=== PATIENT | male | born 1945 | race Caucasian/White ===

== ENCOUNTER 2016-04-03 10:26 | Inpatient (IN) | payer MEDICARE, BC ==
[2016-04-03] VITALS (10 sets, daily range): BP systolic 106–136; BP diastolic 67–78; PULSE 71–92; RESP 16–20; TEMP 98–98.1; O2SAT 95–98
[~2016-04-03] VITALS: Ht 180.3 cm; Wt 100.0 kg
[~2016-04-03 10:26] MED LIST: ADVA250A INH; ASPI81TA82 PO; GLUCTAB PO; LISI2.5T3 PO; METO25 PO; MONT10 PO; NITR.3 SL; PRAS10TA PO; SIMV20TA PO
[2016-04-03] MEDS ORDERED: PRAS10TA PO (10:58)
[2016-04-03] MEDS ORDERED: METF500T PO (10:58)
[2016-04-03] MEDS ORDERED: ADVA250A INH (10:58)
[2016-04-03] MEDS ORDERED: SIMV20TA PO (10:58)
[2016-04-03] MEDS ORDERED: ISOS60TA PO (10:58)
[2016-04-03] MEDS ORDERED: LISI2.5T3 PO (10:58)
[2016-04-03] MEDS ORDERED: METO25TA3 PO (10:58)
[2016-04-03] MEDS ORDERED: MONT10TA4 PO (10:58)
[2016-04-03] MEDS ORDERED: ASPI81TA81 PO (10:58)
[2016-04-03] MEDS ORDERED: NITR0.4S SL (10:58)
[2016-04-03 11:07] LABS: AUTOMATED NEUTROPHIL # 3.8 TH/MM3 (1.8-7.7); BASOPHIL # 0.1 TH/MM3 (0-0.2); BASOPHIL % 0.8 % (0.0-2.0); EOSINOPHIL # 0.1 TH/MM3 (0-0.4); EOSINOPHIL % 2.3 % (0.0-4.0); HEMATOCRIT 42.8 % (39.0-51.0); HEMO FLAGS DIFF FINAL; LYMPH % 28.3 % (9.0-44.0); LYMPHOCYTE # 1.8 TH/MM3 (1.0-4.8); MEAN CELL VOLUME 86.8 FL (80.0-100.0); MEAN CORPUSCULAR HEMOGLOBIN 29.7 PG (27.0-34.0); MEAN CORPUSCULAR HGB CONC 34.2 % (32.0-36.0); MONO % 8.5 % (0.0-8.0); NEUT % 60.1 % (16.0-70.0); PLATELET COUNT 209 TH/MM3 (150-450); RED BLOOD COUNT 4.93 MIL/MM3 (4.50-5.90); RED CELL DISTRIBUTION WIDTH 13.5 % (11.6-17.2); WHITE BLOOD COUNT 6.3 TH/MM3 (4.0-11.0)
[2016-04-03 11:18] LABS: APTT (PATIENT) 28.2 SEC (24.3-30.1); PROTHROMBIN TIME - PATIENT 11.1 SEC (9.8-11.6)
[2016-04-03 11:38] LABS: ANION GAP 10 MEQ/L (5-15); BICARBONATE 25.6 MEQ/L (21.0-32.0); BLOOD UREA NITROGEN 17 MG/DL (7-18); CHLORIDE 104 MEQ/L (98-107); GLOMERULAR FILTRATION RATE 62 ML/MIN (>89); POTASSIUM 4.2 MEQ/L (3.5-5.1); SODIUM (NA) 140 MEQ/L (136-145)
[2016-04-03 11:42] LABS: CREATINE KINASE 151 U/L (39-308)
--- NOTE | 2016-04-03 11:42 | RADRPT ---
EXAM DATE/TIME: 04/03/2016 11:44 [place] COMPARISON: No previous studies available for comparison. INDICATIONS : Shortness of breath, pain and tightness in chest. MEDICAL HISTORY : None. SURGICAL HISTORY : None. ENCOUNTER: Initial ACUITY: 1 week PAIN SCORE: 4/10 LOCATION: Bilateral chest FINDINGS: The lungs are under aerated. Minimal bibasilar clinical changes are noted. The portion of the bony s keleton visualized is unremarkable. PA and lateral views of the chest demonstrate the lungs to be symmetrically aerated without evidence of mass, infiltrate or effusion. The cardiomediastinal contours are unremarkable. Osseous structure s are intact. CONCLUSION: Underated, otherwise negative. Denny Guaman MD FACR on April 03, 2016 at 11:40 Board Certified Radiologist. This report was verified electronically.
[2016-04-03 11:55] LABS: CKMB 3.6 NG/ML (0.5-3.6)
[2016-04-03 12:18] LABS: INDIRECT BILIRUBIN 0.7 MG/DL (0.0-0.8); TOTAL BILIRUBIN ADULT 0.9 MG/DL (0.2-1.0)
--- NOTE | 2016-04-03 13:21 | PD ---
HPI Chief Complaint: Chest Pain Time Seen by Provider: 10:56 Travel History International Travel<30 days: No Contact w/Intl Traveler<30days: No Traveled to known affect area: No History of Present Illness HPI This is a 70-year-old man who presents to the emergency department complaining of intermittent chest discomfort ongoing for the past week, worse with ambulation. He describes a tight squeezing discomfort associated with shortness of breath and diaphoresis. He states he feels a little bit similar to when he had chest pain in the past but not completely similar. History Past Medical History Narrative Medical Hyperlipidemia COPD CAD history of stents Social History Alcohol Use: Yes (occ) Tobacco Use: No Allergies-Medications (Allergen,Severity, Reaction): Coded Allergies: No Known Allergies (Unverified , 04/03/16) Reported Meds & Prescriptions Reported Meds & Active Scripts Active Reported Simvastatin 20 Mg Tab 20 Mg PO HS Isosorbide Mononitrate ER (Isosorbide Mononitrate) 60 Mg Tab 60 Mg PO HS Aspir-81 (Aspirin) 81 Mg Tabdr 162 Mg PO DAILY Nitrostat SL (Nitroglycerin) 0.4 Mg Subl 0.4 Mg SL DIRECTED PRN 1 tablet under the tongue as needed for chest pain. Repeat every 5 minutes for a total of 3 DOSES or call 911 if NO relief. Metoprolol Tartrate 25 Mg Tab 12.5 Mg PO HS Lisinopril 2.5 Mg Tab 2.5 Mg PO DAILY Effient (Prasugrel) 10 Mg Tab 10 Mg PO DAILY Montelukast (Montelukast Sodium) 10 Mg Tab 10 Mg PO HS Metformin (Metformin HCl) 500 Mg Tab 500 Mg PO BIDPC With meals Advair Diskus Inh (Fluticasone-Salmeterol Inh) 250-50 Mcg/Blist Aer 1 Puff INH BID Rinse mouth after use. Review of Systems Except as stated in HPI: all other systems reviewed are Neg Physical Exam Narrative GENERAL: Well-appearing 70 year-old woman, no acute distress. SKIN: Warm and dry. HEAD: Atraumatic. Normocephalic. CARDIOVASCULAR: Regular rate and rhythm. No murmur appreciated. RESPIRATORY: No accessory muscle use. Clear to auscultation. Breath sounds equal bilaterally. GASTROINTESTINAL: Abdomen soft, non-tender, nondistended. Hepatic and splenic margins not palpable. MUSCULOSKELETAL: No obvious deformities. No edema. NEUROLOGICAL: Awake and alert. No obvious cranial nerve deficits. Motor grossly within normal limits. Normal speech. PSYCHIATRIC: Appropriate mood and affect; insight and judgment normal. Data Data Last Documented VS Vital Signs Date Time Temp Pulse Resp B/P Pulse Ox O2 Delivery O2 Flow Rate FiO2 04/03/16 10:31 98.1 78 16 136/67 95 Orders Electrocardiogram (04/03/16 10:31) Complete Blood Count With Diff (04/03/16 10:31) Basic Metabolic Panel (Bmp) (04/03/16 10:31) Ckmb (Isoenzyme) Profile (04/03/16 10:31) Troponin I (04/03/16 10:31) Prothrombin Time / Inr (Pt) (04/03/16 10:33) Act Partial Throm Time (Ptt) (04/03/16 10:33) Hepatic Functional Panel (04/03/16 11:26) Chest, Pa & Lat (04/03/16 ) CKMB (04/03/16 10:45) CKMB% (04/03/16 10:45) Admit Order (Ed Use Only) (04/03/16 ) Labs Laboratory Tests Test 04/03/16 10:45 White Blood Count 6.3 TH/MM3 Red Blood Count 4.93 MIL/MM3 Hemoglobin 14.6 GM/DL Hematocrit 42.8 % Mean Corpuscular Volume 86.8 FL Mean Corpuscular Hemoglobin 29.7 PG Mean Corpuscular Hemoglobin 34.2 % Concent Red Cell Distribution Width 13.5 % Platelet Count 209 TH/MM3 Mean Platelet Volume 8.1 FL Neutrophils (%) (Auto) 60.1 % Lymphocytes (%) (Auto) 28.3 % Monocytes (%) (Auto) 8.5 % Eosinophils (%) (Auto) 2.3 % Basophils (%) (Auto) 0.8 % Neutrophils # (Auto) 3.8 TH/MM3 Lymphocytes # (Auto) 1.8 TH/MM3 Monocytes # (Auto) 0.5 TH/MM3 Eosinophils # (Auto) 0.1 TH/MM3 Basophils # (Auto) 0.1 TH/MM3 CBC Comment DIFF FINAL Differential Comment Prothrombin Time 11.1 SEC Prothromb Time International 1.0 RATIO Ratio Activated Partial 28.2 SEC Thromboplast Time Sodium Level 140 MEQ/L Potassium Level 4.2 MEQ/L Chloride Level 104 MEQ/L Carbon Dioxide Level 25.6 MEQ/L Anion Gap 10 MEQ/L Blood Urea Nitrogen 17 MG/DL Creatinine 1.17 MG/DL Estimat Glomerular Filtration 62 ML/MIN Rate Random Glucose 114 MG/DL Calcium Level 9.3 MG/DL Total Bilirubin 0.9 MG/DL Direct Bilirubin 0.2 MG/DL Indirect Bilirubin 0.7 MG/DL Aspartate Amino Transf 12 U/L (AST/SGOT) Alanine Aminotransferase 28 U/L (ALT/SGPT) Alkaline Phosphatase 80 U/L Total Creatine Kinase 151 U/L Creatine Kinase MB 3.6 NG/ML Troponin I LESS THAN 0.02 NG/ML Total Protein 7.7 GM/DL Albumin 4.5 GM/DL [facility] Medical Decision Making Medical Screen Exam Complete: Yes Emergency Medical Condition: Yes Interpretation(s) LABS: CBC is unremarkable. CMP is unremarkable. Troponin negative. Chest x-ray: Negative EKG: Nondiagnostic. Differential Diagnosis ACS, ME, dissection, PE, indigestion, pancreatitis, other Narrative Course This is a 70-year-old male presents emergency department with pressure-like chest discomfort with exertion, concerning for an acute coronary syndrome. I spoke with Dr. aGrzon, his podiatrist assistant. Recommend admission a heart catheterization. We will try to contact whoever is international flight attendant for [facility]. Patient will be admitted. HemaPrompt Point of Care Fecal Specimen Occult Blood: Negative Diagnosis Primary Impression: ACS (acute coronary syndrome) Admitting Information Admitting Physician Requests: Admit Santos Ferrari MD Apr 03, 2016 13:21
--- NOTE | 2016-04-03 14:08 | HHI.HP ---
[facility] Service Family Medicine Primary Care Physician Kyaw Cortez M.D. Admission Diagnosis ACS Diagnoses: International Travel<30 Days: No Contact w/Intl Traveler<30days: No Known Affected Area: No History of Present Illness Pt is a 70 year old male with past medical history significant for CAD presenting due to chest pain. Patient recently started exercising regularly by walking. He began to experience progressively worsening chest pain that would increase in duration the more he walked. He would experience right sided chest discomfort which would radiate to the left side of his chest. Patient called his senior scrum master, Dr. Garzon, earlier today and informed him of his symptoms and he was instructed to report to the emergency department. Pain is exacerbated by activity. After resting for several minutes pain would completely resolve. Pain is described as a pressure, "like someone is grabbing him from the inside", 3/10 in intensity, currently resolved. He denies any associated nausea, vomiting, shortness of breath. Pt denies history of IN, but he has had stents placed. This pain is different to the pain he had prior to stent placement. (Deny Palafox MD R2) Review of Systems Constitutional: COMPLAINS OF: Fatigue, DENIES: Chills Eyes: DENIES: Blurred vision Ears, nose, mouth, throat: COMPLAINS OF: Hearing loss Respiratory: DENIES: Shortness of breath Cardiovascular: COMPLAINS OF: Chest pain, DENIES: Palpitations, Syncope Gastrointestinal: DENIES: Abdominal pain, Black stools, Bloody stools, Constipation, Diarrhea, Nausea, Vomiting Musculoskeletal: COMPLAINS OF: Stiffness, Back pain Integumentary: DENIES: Rash Neurologic: DENIES: Localized weakness Psychiatric: DENIES: Confusion (Deny Palafox MD R2) Past Family Social History Past Medical History Hyperlipidemia CAD, history of stent placement DM COPD Past Surgical History Cardiac stent placement x3 on two separate occasions 2009, Internal hemmheroid surgery Reported Medications Reported Meds & Active Scripts Active Reported Simvastatin 20 Mg Tab 20 Mg PO HS Isosorbide Mononitrate ER (Isosorbide Mononitrate) 60 Mg Tab 60 Mg PO HS Aspir-81 (Aspirin) 81 Mg Tabdr 162 Mg PO DAILY Nitrostat SL (Nitroglycerin) 0.4 Mg Subl 0.4 Mg SL DIRECTED PRN 1 tablet under the tongue as needed for chest pain. Repeat every 5 minutes for a total of 3 DOSES or call 911 if NO relief. Metoprolol Tartrate 25 Mg Tab 12.5 Mg PO HS Lisinopril 2.5 Mg Tab 2.5 Mg PO DAILY Effient (Prasugrel) 10 Mg Tab 10 Mg PO DAILY Montelukast (Montelukast Sodium) 10 Mg Tab 10 Mg PO HS Metformin (Metformin HCl) 500 Mg Tab 500 Mg PO BIDPC With meals Advair Diskus Inh (Fluticasone-Salmeterol Inh) 250-50 Mcg/Blist Aer 1 Puff INH BID Rinse mouth after use. (Deny Palafox MD R2) Allergies: Coded Allergies: No Known Allergies (Unverified , 04/03/16) Active Ordered Medications Inpatient Medications Aspirin (Ecotrin Ec) 162 mg DAILY PO ; Start 04/04/16 at 09:00 Atorvastatin Calcium (Lipitor) 10 mg HS PO ; Start 04/04/16 at 21:00; Stop at 21:00; Status DC Budesonide/ Formoterol Fumarate (Symbicort 160-4.5 Inh) 1 puff BID INH ; Start 04/03/16 at 21:00 Dextrose (D50w (Vial) Inj) 25 ml UNSCH PRN IV PUSH HYPOGLYCEMIA-SEE COMMENTS; Start 04/03/16 at 16:15 Docusate Sodium (Colace) 100 mg BID PRN PO CONSTIPATION; Start 04/03/16 at 14:45 ; Stop 04/03/16 at 16:14; Status DC Fluticasone Propionate (Flovent Hfa 220 Mcg Inh) 1 puff BID INH ; Start 04/03/16 at 21:00; Stop 04/03/16 at 21:00; Status DC Glucagon (Glucagon Inj) 1 mg UNSCH PRN OTHER HYPOGLYCEMIA-SEE COMMENTS; Start 04/03/16 at 16:15 Heparin Sodium (Porcine) 5000 units 5,000 units Q8HR SQ ; Start 04/03/16 at 22:00 Hydralazine HCl (Apresoline Inj) 10 mg Q6H PRN IV SBP> OR = 160, DBP> OR = 90; Start 04/03/16 at 16:15 Insulin Aspart (NovoLOG SUPPLEMENTAL SCALE) 1 ACHS SLIDING SCALE SQ ; Start 04/03/16 at 21:00 IV Flush (NS Flush) 2 ml UNSCH PRN IVF FLUSH AFTER USING IV ACCESS; Start at 14:45 Labetalol HCl (Trandate Inj) 10 mg Q4H PRN IV SBP> OR = 180, DBP> OR = 100; Start 04/03/16 at 16:15 Lisinopril (Prinivil) 2.5 mg DAILY PO ; Start 04/04/16 at 09:00 Metoprolol Tartrate (Lopressor) 12.5 mg HS PO ; Start 04/04/16 at 21:00 Miscellaneous (Pill Splitter) 1 ea UNSCH PRN OTHER SEE LABEL COMMENTS; Start at 21:00 Montelukast Sodium (Singulair) 10 mg HS PO ; Start 04/04/16 at 21:00 Morphine Sulfate (Morphine Inj) 2 mg Q30M PRN IV CHEST PAIN; Start 04/03/16 at 14:45 Nitroglycerin (Nitroglycerin 2% Oint) 2 inch Q1HR PRN TOP CHEST PAIN; Start 04/03/16 at 14:45 Nitroglycerin (Nitrostat Sl) 0.4 mg Q5M PRN SL CHEST PAIN; Start 04/03/16 at 14: 45 Ondansetron HCl (Zofran Inj) 4 mg Q6H PRN IV NAUSEA; Start 04/03/16 at 16:15 Pravastatin Sodium (Pravachol) 40 mg HS PO ; Start 04/03/16 at 21:00 Salmeterol Xinafoate (Serevent Diskus Inh) 50 mcg BID INH ; Start 04/03/16 at 21: 00; Stop 04/03/16 at 21:00; Status DC Senna/Docusate Sodium (Demetria-Colace) 1 tab BID PRN PO CONSTIPATION; Start at 16:15 Sodium Chloride (NS 1000 ml Inj) 1,000 ml @ 100 mls/hr Q10H IV ; Start 04/03/16 at 17:00 Family History Mother: Breast cancer, Parkinsons disease, at 88 Father: at 95, healthy Social History 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 $ years of service Pt with history of tobacco use, 1PPD for 50 years Denies history of alcohol use and illicit drug use (Deny Palafox MD R2) Physical Exam Vital Signs Vital Signs Date Time Temp Pulse Resp B/P Pulse Ox O2 Delivery O2 Flow Rate FiO2 04/03/16 10:31 98.1 78 16 136/67 95 Physical Exam GENERAL: This is a well-nourished, well-developed patient, in no apparent distress. SKIN: No rashes, ecchymoses or lesions. Cool and dry. HEAD: Atraumatic. Normocephalic. No temporal or scalp tenderness. EYES: Pupils equal round and reactive. Extraocular motions intact. No scleral icterus. No injection or drainage. ENT: Pt wearing bilateral hearing aids. Nose without bleeding, purulent drainage or septal hematoma. Throat without erythema, tonsillar hypertrophy or exudate. Uvula midline. Airway patent. NECK: Trachea midline. No JVD or lymphadenopathy. Supple, nontender, no meningeal signs. No carotid bruit appreciated. CARDIOVASCULAR: Regular rate and rhythm without murmurs, gallops, or rubs. RESPIRATORY: Clear to auscultation. Breath sounds equal bilaterally. No wheezes , rales, or rhonchi. GASTROINTESTINAL: Abdomen soft, non-tender, nondistended. No hepato-splenomegaly , or palpable masses. No guarding. MUSCULOSKELETAL: Extremities without clubbing, cyanosis, or edema. No joint tenderness, effusion, or edema noted. No calf tenderness. Negative Homans sign bilaterally. NEUROLOGICAL: Awake and alert. Motor and sensory grossly within normal limits. Normal speech. Laboratory Laboratory Tests Test 04/03/16 10:45 White Blood Count 6.3 Red Blood Count 4.93 Hemoglobin 14.6 Hematocrit 42.8 Mean Corpuscular Volume 86.8 Mean Corpuscular Hemoglobin 29.7 Mean Corpuscular Hemoglobin 34.2 Concent Red Cell Distribution Width 13.5 Platelet Count 209 Mean Platelet Volume 8.1 Neutrophils (%) (Auto) 60.1 Lymphocytes (%) (Auto) 28.3 Monocytes (%) (Auto) 8.5 Eosinophils (%) (Auto) 2.3 Basophils (%) (Auto) 0.8 Neutrophils # (Auto) 3.8 Lymphocytes # (Auto) 1.8 Monocytes # (Auto) 0.5 Eosinophils # (Auto) 0.1 Basophils # (Auto) 0.1 CBC Comment DIFF FINAL Differential Comment Prothrombin Time 11.1 Prothromb Time International 1.0 Ratio Activated Partial 28.2 Thromboplast Time Sodium Level 140 Potassium Level 4.2 Chloride Level 104 Carbon Dioxide Level 25.6 Anion Gap 10 Blood Urea Nitrogen 17 Creatinine 1.17 Estimat Glomerular Filtration 62 Rate Random Glucose 114 Calcium Level 9.3 Total Bilirubin 0.9 Direct Bilirubin 0.2 Indirect Bilirubin 0.7 Aspartate Amino Transf 12 (AST/SGOT) Alanine Aminotransferase 28 (ALT/SGPT) Alkaline Phosphatase 80 Total Creatine Kinase 151 Creatine Kinase MB 3.6 Troponin I LESS THAN 0.02 Total Protein 7.7 Albumin 4.5 (Deny Palafox MD R2) Result Diagram: 04/03/16 1045 04/03/16 1045 Imaging Last 24 hours Impressions Chest X-Ray 04/03/16 0000 Signed Impressions: Service Date/Time: Sunday, April 03, 2016 11:44 - CONCLUSION: Underated , otherwise negative. Denny Guaman MD FACR (Deny Palafox MD R2) Assessment and Plan Assessment and Plan Patient is a 70-year-old male with past medical history significant for CAD, hyperlipidemia presenting due to unstable angina. Cardiology has been consulted, appreciate recommendations. Patient is anticipated to have cardiac catheterization later today or tomorrow. Code Status Full Discussed Condition With sdw Dr. Vazquez, Dr. Bobo (Deny Palafox MD R2) Attending Attestation THIS CASE WAS DISCUSSED WITH THE RESIDENT PHYSICIANS. I HAVE REVIEWED THE RECORD AND AGREE WITH THE ABOVE NOTE AND PLAN OF CARE WAS DISCUSSED. I HAVE AUTHORIZED THE ORDER FOR ADMISSION TO AN IN-PATIENT STATUS. (Tomi Vazquez MD) Problem List: (1) Unstable angina Status: Acute Plan: Pt reports unstable angina that has been worsening over he last 2 weeks. EKG significant for PVC, T-wave inversion in lead 3, no ST changes. Patient's senior scrum master is Dr. Garzon, recommended admission and cardiac catheterization. -Anticipate cardiac catheterization later today or tomorrow -Initial troponin less then 0.02, CK-MB 3.6, CK 151 -We'll continue to monitor troponin, CK, and EKGs every 6 hours 2 -Morphine, nitroglycerin, nitroglycerin paste prn chest pain -Aspirin 324 mg 1 -See plans below for hyperlipidemia, diabetes, CAD -Labetalol, hydralazine prn (2) ACS (acute coronary syndrome) Status: Acute Plan: -See plan above (3) CAD (coronary artery disease) Status: Acute Plan: Patient with history of coronary artery disease and the placement of 3 stents. Continue home medications: -Aspirin 81 mg -Lisinopril 2.5 mg po daily -Metoprolol tartrate 25 mg po daily -Effient 10 mg po daily (4) Diabetes Status: Acute Plan: Patient with history of diabetes type 2 diabetes. -Hold home metformin -Low dose SSI -Monitor blood glucose levels -We'll check hemoglobin A1c (5) COPD (chronic obstructive pulmonary disease) Status: Acute Plan: Continue home medications -Advair not available hospital formulary will replace with Symbicort -Continue montelukast 10 mg (6) Hyperlipidemia Status: Acute Plan: -Atorvastatin 10 mg HS (7) FEN/PPX Status: Acute Plan: Fluids: NS 100mls/hr, to b discontinued when pt it able to tolerate PO Electrolytes: Within normal limits, continue to monitor Nutrition: Patient currently nothing by mouth in anticipation of cardiac catheterization, patient to resume diabetic diet thereafter DVT PPX: Heparin 5,000 Q8hrs (Deny Palafox MD R2) Physician Certification 2 Midnight Certification Type: Admission for Inpatient Services Order for Inpatient Services The services are ordered in accordance with Medicare regulations or non- Medicare payer requirements, as applicable. In the case of services not specified as inpatient-only, they are appropriately provided as inpatient services in accordance with the 2-midnight benchmark. Estimated LOS (days): 2 2 days is the estimated time the patient will need to remain in the hospital, assuming treatment plan goals are met and no additional complications. Post-Hospital Plan: Home (Deny Palafox MD R2) Deny Palafox MD R2 Apr 03, 2016 14:08 Tomi Vazquez MD Apr 03, 2016 21:40
[2016-04-03] MEDS ORDERED: DOCUSATE SODIUM 100 MG CAP PO PRN (14:45)
[2016-04-03] MEDS ORDERED: NITROGLYCERIN 0.4 MG SL 25 TABS/BTL SL PRN (14:45)
[2016-04-03] MEDS ORDERED: NITROGLYCERIN 2% OINT 1 GM PACKET TOP PRN (14:45)
[2016-04-03] MEDS ORDERED: MORPHINE SULFATE 4 MG/ML INJ IV PRN (14:45)
[2016-04-03] MEDS ORDERED: SODIUM CHLORIDE 0.9% FLUSH 5 ML FLUSH IVF PRN (14:45)
[2016-04-03] MEDS ORDERED: GLUCAGON 1 MG/ML VIAL OTHER PRN (16:15)
[2016-04-03] MEDS ORDERED: ONDANSETRON HCL 4 MG/2 ML VIAL IV PRN (16:15)
[2016-04-03] MEDS ORDERED: DOCUSATE SODIUM 50 MG/SENNA 8.6 MG TAB PO PRN (16:15)
[2016-04-03] MEDS ORDERED: LABETALOL HCL 100 MG/20 ML VIAL IV PRN (16:15)
[2016-04-03] MEDS ORDERED: DEXTROSE 50% IN WATER 50 ML VIAL(D50) IV PUSH PRN (16:15)
[2016-04-03] MEDS ORDERED: hydrALAZINE HCL 20 MG/ML VIAL IV PRN (16:15)
[2016-04-03 17:31] LABS: CREATINE KINASE 135 U/L (39-308)
[2016-04-03 17:46] LABS: CKMB 2.5 NG/ML (0.5-3.6)
[2016-04-03] MEDS ORDERED: IOHEXOL 350 MG/ML 100 ML BTL (for Cath Lab) OTHER ONE (18:15)
[2016-04-03] MEDS ORDERED: IOHEXOL 350 MG/ML 50 ML BTL (for Cath Lab) OTHER ONE (18:15)
[2016-04-03] MEDS ORDERED: MIDAZOLAM HCL 2 MG/2 ML VIAL ONE ×3 (18:24→19:50)
[2016-04-03] MEDS ORDERED: HEPARIN-NS/PF INJ 500 ML ONE (18:24)
[2016-04-03] MEDS ORDERED: VERAPAMIL HCL 5 MG/2 ML VIAL ONE (18:31)
[2016-04-03] MEDS ORDERED: HEPARIN SODIUM - IV 10,000 UNITS/10 ML VIAL ONE (18:31)
[2016-04-03] MEDS ORDERED: PRASUGREL 10 MG TAB ONE (19:59)
--- NOTE | 2016-04-03 20:35 | MA ---
cc: FERNANDO BARNETT DATE: 04/03/2016. PROCEDURE PERFORMED: 1. Left heart catheterization. 2. Left ventricle hemodynamics. 3. Successful percutaneous coronary intervention to the first diagonal. INDICATIONS FOR THE PROCEDURE: Unstable angina. DESCRIPTION OF THE PROCEDURE IN DETAIL: Consent was signed. The patient was brought into the cardiac catheterization laboratory in a fasting state. The right wrist and right groin were prepped and draped in the usual sterile fashion. Using 1% lidocaine for local anesthesia, a micropuncture kit, a 6-Uzbek sheath was inserted into the right radial artery. Then an antispasmodic cocktail was given. Then selective right and left coronary angiography was performed with a JL 3.5 diagnostic catheter and a JR-4 diagnostic catheter. Angiography was performed in multiple views. The JR catheter was used to get into the ventricle. IV hemodynamics were measured and then pullback. There was a significant lesion in the first diagonal with BJORN 0 flow measuring 26 mm in length that has progressed from previous angiogram. Thus , we decided to intervene in this vessel. The approach was changed from radial to right groin given the patient's severe tortuosity in the right subclavian artery. For this, 1% lidocaine was used for local anesthesia. Using a micropuncture kit, we inserted a 6-Uzbek sheath into the right common femoral artery. Right common femoral artery angiography was performed to confirm position of the sheath. The left main was engaged with an XB 3.5 guide. The diagonal vessel was wired with a Cho[employer] PT Extra Support wire and it was uncoiled distally. The vessel was first pre-dilated with a 2 x 10 mm balloon several times. Final balloon inflation was 2.25 x 26 mm drug-eluting stent. There was some haziness in the ostium of that vessel, questionable small dissection for which another 2.25 x 8 drug-eluting stent was put in the proximal portion. Final angiographic views revealed good position and expansion with BJORN III flow. The patient tolerated the procedure well without complications. The estimated blood loss was less than 50 cc. TOTAL CONTRAST: 200. The right wrist radial access site was closed with a TR band. The right groin was closed with a Perclose device. The patient was given Effient after the procedure. RESULTS: LEFT VENTRICLE: The left ventricular pressure was 88/9 with an left ventricular end diastolic pressure of 9. The aortic pressure was 77/55 with a mean of 64. ANGIOGRAPHIC RESULTS: 1. The right coronary artery is a dominant vessel and has minimal luminal irregularities throughout and it has slow flow. It has a significant bend proximally and distally. The posterior descending artery is patent with minimal luminal irregularities throughout. 2. The left main is patent with BJORN III flow. 3. The left anterior descending is a transapical vessel and has minimal calcifications throughout. It has a proximal 40% lesion, a distal 40% lesion. The first diagonal is 100% occluded. 4. The circumflex artery is a prominent vessel. It has two patent stents in its proximal portion. The OM-1 and OM-2 are patent. The OM-1 has a 40% lesion proximally. CONCLUSIONS: 1. Successful percutaneous coronary intervention with drug-eluting stent to the first diagonal. 2. Patent stent to the left circumflex artery. 3. Microvascular disease with slow flow. RECOMMENDATIONS: Continue dual antiplatelet agents with aspirin and Effient as well as aggressive medical management for coronary artery disease which should include beta blockers, RODY inhibitors, statins and long-acting nitrates as tolerated by the patient's blood pressure and heart rate. MD AYDE Collazo/KATHRIN /8:05 PM /8:16 PM DANY
--- NOTE | 2016-04-03 20:51 | MB ---
cc: FERNANDO BARNETT DATE OF CONSULTATION: 04/03/2016. REASON FOR CONSULTATION: Chest pain. HISTORY OF PRESENT ILLNESS: 70-year-old male patient of Dr. Garzon with past medical history significant for coronary artery disease status post percutaneous coronary intervention, hyperlipidemia, diabetes, COPD and obesity who presented to the emergency department with complaints of progressive worsening of chest discomfort that has increased induration for the last month. He states that the chest pain is worsened by exertion and relieved by rest and it radiates to the left side of the chest. The patient called his boom storage this morning, Dr. Garzon, who advised him to present to the emergency department. In the emergency department, his EKG showed normal sinus rhythm and the troponin's have been negative so far. He denies nausea, vomiting, diarrhea, shortness of breath, palpitations, syncope, bleeding issues, dizziness, chest trauma. REVIEW OF SYSTEMS: Negative except for that mentioned in the history of present illness. PAST MEDICAL HISTORY: 1. Hyperlipidemia. 2. Coronary artery disease status post stents. 3. Diabetes. 4. COPD. 5. Obesity. PAST SURGICAL HISTORY: 1. Cardiac stents in 2009. 2. Internal hemorrhoid surgery. HOME MEDICATIONS: 1. Simvastatin 20 milligrams p.o. at bedtime. 2. Imdur 60 milligrams p.o. at bedtime. 3. Aspirin 81 milligrams p.o. daily. 4. Metoprolol 25 milligrams p.o. twice a day. 5. Lisinopril 2.5 milligrams p.o. daily. 6. Effient 10 milligrams p.o. daily. 7. Metformin 500 milligrams p.o. twice a day. 8. Advair Diskus inhalers. 9. Montelukast 10 milligrams at bedtime. ALLERGIES: NO KNOWN DRUG ALLERGIES. PHYSICAL EXAMINATION: VITAL SIGNS: Temperature 98, heart rate 78, respiratory rate 16, blood pressure 136/67 and 02 saturation 95% in room air. GENERAL: He is awake, alert and oriented times three in no acute distress. at bedside. NECK: No jugular venous distention. No carotid bruits. HEART: Regular rate and rhythm. No murmurs, rubs or gallops appreciated. LUNGS: Clear to auscultation bilaterally. No wheezing. No rales. No rhonchi. GI: Positive bowel sounds. The abdomen is soft, nontender and nondistended with no hepatosplenomegaly or palpable masses. No guarding. EXTREMITIES: There is no cyanosis and no edema. Good pulses throughout. LABORATORY DATA: CBC shows a white count 6.3, hemoglobin of 14, hematocrit of 42, platelet count of 209,000. INR is 1. Sodium is 140, potassium 4.2, BUN 79, creatinine is 1.17. His troponins are less than 0.02. IMAGING STUDIES: Chest x-ray: There is no acute cardiopulmonary process. EKGS: EKG shows sinus rhythm with occasional ventricular premature contractions and left axis deviation ASSESSMENT AND PLAN: This is a 70-year-old male with known coronary artery disease and stents in the past who presented with unstable angina. Currently he remains hemodynamically stable. He reports being compliant with medications including dual antiplatelet therapies (aspirin and Effient). I think his story and symptoms are signs of unstable angina. Thus, the recommendation at this point would be to take him to the cardiac catheterization laboratory to further assess progression of coronary artery disease. The risks and benefits of left heart catheterization / percutaneous coronary intervention including but not limited to bleeding, renal failure, kidney injury, stroke, emergent bypass surgery, myocardial infarction, neurovascular trauma and have been explained to the patient and he is willing to proceed. RECOMMENDATIONS: 1. Keep him NPO for coronary angiogram today. 2. Continue aggressive medical management for coronary artery disease. 3. Get a 2-D echocardiogram to assess left ventricular systolic function. Thank you for the opportunity to take part in the care of this patient. Will follow with you. MD AYDE Collazo/KATHRIN /8:18 PM /8:33 PM DANY
[2016-04-03] MEDS: BUDESONIDE-FORMOTEROL 160/4.5 MCG INHALER INH SCH (21:00)
[2016-04-03] MEDS ORDERED: SALMETEROL XINAFOATE 50 MCG DISKUS INH SCH (21:00)
[2016-04-03] MEDS: INSULIN ASPART SUPPLEMENTAL SCALE SQ SCH (21:00)
[2016-04-03] MEDS ORDERED: PILL SPLITTER OTHER PRN (21:00)
[2016-04-03] MEDS ORDERED: FLUTICASONE PROPIONATE 220 MCG/ACT 12 GM INHALER INH SCH (21:00)
[2016-04-03] MEDS ORDERED: PRAVASTATIN SOD 40 MG TAB PO SCH (21:00)
[2016-04-03] MEDS: SODIUM CHLORIDE 0.9% FLUSH 5 ML FLUSH IVF SCH (21:17)
--- NOTE | 2016-04-03 21:38 | HHI.HP ---
[facility] Service Family Medicine Primary Care Physician Kyaw Cortez M.D. Admission Diagnosis ACS Diagnoses: (1) Unstable angina (2) ACS (acute coronary syndrome) (3) CAD (coronary artery disease) (4) Diabetes (5) COPD (chronic obstructive pulmonary disease) (6) Hyperlipidemia (7) FEN/PPX International Travel<30 Days: No Contact w/Intl Traveler<30days: No Known Affected Area: No History of Present Illness 70 yo M presenting to the ED at the recommendation of his sole layer hand for further evaluation of chest pain/pressure. He states that he has recently been having chest pain/pressure with minimal activity. He has developed pain while walking with his and has progressed to substernal chest pain with walking to his mailbox. Pressure is worse with activity and resolves with rest. He has not tried any nitro to see if it relieves pain. He currently has no pain but states if he gets up to walk then the pain will develop. He denies any diaphoresis, denies radiation of pain, denies nausea/vomiting. 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 $ years of service Pt with history of tobacco use, 1PPD for 50 years Denies history of alcohol use and illicit drug use Physical Exam Vital Signs Vital Signs Date Time Temp Pulse Resp B/P Pulse Ox O2 Delivery O2 Flow Rate FiO2 04/03/16 18:04 72 17 135/78 97 04/03/16 16:00 92 18 110/67 96 Room Air 04/03/16 14:30 77 19 106/67 98 Room Air 04/03/16 13:30 83 20 106/67 97 Room Air 04/03/16 10:31 98.1 78 16 136/67 95 Physical Exam GENERAL: This is a well-nourished, well-developed patient, in no apparent distress. SKIN: No rashes, ecchymoses or lesions. Cool and dry. NECK: Trachea midline. No JVD CARDIOVASCULAR: Regular rate and rhythm without murmurs, gallops, or rubs. RESPIRATORY: Clear to auscultation. Breath sounds equal bilaterally. No wheezes , rales, or rhonchi. GASTROINTESTINAL: Abdomen soft, non-tender, nondistended. MUSCULOSKELETAL: Extremities without clubbing, cyanosis, or edema. NEUROLOGICAL: Awake and alert. Normal speech. Laboratory Laboratory Tests Test 04/03/16 04/03/16 10:45 16:45 White Blood Count 6.3 Red Blood Count 4.93 Hemoglobin 14.6 Hematocrit 42.8 Mean Corpuscular Volume 86.8 Mean Corpuscular Hemoglobin 29.7 Mean Corpuscular Hemoglobin 34.2 Concent Red Cell Distribution Width 13.5 Platelet Count 209 Mean Platelet Volume 8.1 Neutrophils (%) (Auto) 60.1 Lymphocytes (%) (Auto) 28.3 Monocytes (%) (Auto) 8.5 Eosinophils (%) (Auto) 2.3 Basophils (%) (Auto) 0.8 Neutrophils # (Auto) 3.8 Lymphocytes # (Auto) 1.8 Monocytes # (Auto) 0.5 Eosinophils # (Auto) 0.1 Basophils # (Auto) 0.1 CBC Comment DIFF FINAL Differential Comment Prothrombin Time 11.1 Prothromb Time International 1.0 Ratio Activated Partial 28.2 Thromboplast Time Sodium Level 140 Potassium Level 4.2 Chloride Level 104 Carbon Dioxide Level 25.6 Anion Gap 10 Blood Urea Nitrogen 17 Creatinine 1.17 Estimat Glomerular Filtration 62 Rate Random Glucose 114 Calcium Level 9.3 Total Bilirubin 0.9 Direct Bilirubin 0.2 Indirect Bilirubin 0.7 Aspartate Amino Transf 12 (AST/SGOT) Alanine Aminotransferase 28 (ALT/SGPT) Alkaline Phosphatase 80 Total Creatine Kinase 151 135 Creatine Kinase MB 3.6 2.5 Troponin I LESS THAN 0.02 LESS THAN 0.02 Total Protein 7.7 Albumin 4.5 Result Diagram: 04/03/16 1045 04/03/16 1045 Imaging Last 24 hours Impressions Chest X-Ray 04/03/16 0000 Signed Impressions: Service Date/Time: Sunday, April 03, 2016 11:44 - CONCLUSION: Underated , otherwise negative. Denny Guaman MD FACR Assessment and Plan Assessment and Plan Patient is a 70-year-old male with past medical history significant for CAD, hyperlipidemia presenting due to unstable angina. Cardiology has been consulted, appreciate recommendations. Patient is anticipated to have cardiac catheterization later today or tomorrow. Problem List: (1) Unstable angina Status: Acute Plan: Pt reports unstable angina that has been worsening over he last 2 weeks. EKG significant for PVC, T-wave inversion in lead 3, no ST changes. Patient's sole layer hand is Dr. Garzon, recommended admission and cardiac catheterization. -Anticipate cardiac catheterization later today or tomorrow -Initial troponin less then 0.02, CK-MB 3.6, CK 151 -We'll continue to monitor troponin, CK, and EKGs every 6 hours 2 -Morphine, nitroglycerin, nitroglycerin paste prn chest pain -Aspirin 324 mg 1 -See plans below for hyperlipidemia, diabetes, CAD -Labetalol, hydralazine prn (2) ACS (acute coronary syndrome) Status: Acute Plan: -See plan above (3) CAD (coronary artery disease) Status: Acute Plan: Patient with history of coronary artery disease and the placement of 3 stents. Continue home medications: -Aspirin 81 mg -Lisinopril 2.5 mg po daily -Metoprolol tartrate 25 mg po daily -Effient 10 mg po daily (4) Diabetes Status: Acute Plan: Patient with history of diabetes type 2 diabetes. -Hold home metformin -Low dose SSI -Monitor blood glucose levels -We'll check hemoglobin A1c (5) COPD (chronic obstructive pulmonary disease) Status: Acute Plan: Continue home medications -Advair not available hospital formulary will replace with Symbicort -Continue montelukast 10 mg (6) Hyperlipidemia Status: Acute Plan: -Atorvastatin 10 mg HS (7) FEN/PPX Status: Acute Plan: Fluids: NS 100mls/hr, to b discontinued when pt it able to tolerate PO Electrolytes: Within normal limits, continue to monitor Nutrition: Patient currently nothing by mouth in anticipation of cardiac catheterization, patient to resume diabetic diet thereafter DVT PPX: Heparin 5,000 Q8hrs Physician Certification 2 Midnight Certification Type: Admission for Inpatient Services Order for Inpatient Services The services are ordered in accordance with Medicare regulations or non- Medicare payer requirements, as applicable. In the case of services not specified as inpatient-only, they are appropriately provided as inpatient services in accordance with the 2-midnight benchmark. Estimated LOS (days): 2 2 days is the estimated time the patient will need to remain in the hospital, assuming treatment plan goals are met and no additional complications. Post-Hospital Plan: Not yet determined Tomi Vazquez MD Apr 03, 2016 21:38
[2016-04-03] MEDS: HEPARIN SODIUM - SQ 10,000 UNITS/ML VIAL SQ SCH (22:00)
[2016-04-04] VITALS (14 sets, daily range): BP systolic 120–141; BP diastolic 80–92; PULSE 62–91; RESP 16–20; TEMP 97.9–99; O2SAT 95–96
[2016-04-04] MEDS: SODIUM CHLOR 0.9% 1000 ML INJ 1,000 ML IV SCH ×2 (03:00→12:28)
[2016-04-04] MEDS: HEPARIN SODIUM - SQ 10,000 UNITS/ML VIAL SQ SCH (05:32)
[2016-04-04] MEDS: INSULIN ASPART SUPPLEMENTAL SCALE SQ SCH ×2 (05:56→12:22)
[2016-04-04 07:00] LABS: AUTOMATED NEUTROPHIL # 4.3 TH/MM3 (1.8-7.7); BASOPHIL % 0.4 % (0.0-2.0); EOSINOPHIL # 0.1 TH/MM3 (0-0.4); EOSINOPHIL % 1.1 % (0.0-4.0); HEMATOCRIT 40.3 % (39.0-51.0); HEMO FLAGS DIFF FINAL; LYMPH % 19.9 % (9.0-44.0); LYMPHOCYTE # 1.2 TH/MM3 (1.0-4.8); MEAN CELL VOLUME 86.8 FL (80.0-100.0); MEAN CORPUSCULAR HEMOGLOBIN 30.3 PG (27.0-34.0); MEAN CORPUSCULAR HGB CONC 34.9 % (32.0-36.0); MONO % 8.3 % (0.0-8.0); NEUT % 70.3 % (16.0-70.0); PLATELET COUNT 161 TH/MM3 (150-450); RED BLOOD COUNT 4.65 MIL/MM3 (4.50-5.90); RED CELL DISTRIBUTION WIDTH 13.3 % (11.6-17.2); WHITE BLOOD COUNT 6.1 TH/MM3 (4.0-11.0)
[2016-04-04 08:01] LABS: ANION GAP 7 MEQ/L (5-15); BICARBONATE 29.5 MEQ/L (21.0-32.0); BLOOD UREA NITROGEN 15 MG/DL (7-18); CHLORIDE 105 MEQ/L (98-107); CREATINE KINASE 121 U/L (39-308); GLOMERULAR FILTRATION RATE 59 ML/MIN (>89); HDL CHOLESTEROL 43.9 MG/DL (40.0-60.0); LDL CHOLESTEROL 50 MG/DL (0-99); POTASSIUM 3.9 MEQ/L (3.5-5.1); SODIUM (NA) 141 MEQ/L (136-145)
[2016-04-04] MEDS: SODIUM CHLORIDE 0.9% FLUSH 5 ML FLUSH IVF SCH (08:56)
[2016-04-04] MEDS: BUDESONIDE-FORMOTEROL 160/4.5 MCG INHALER INH SCH (08:59)
[2016-04-04] MEDS ORDERED: LISINOPRIL 5 MG TAB PO SCH (09:00)
[2016-04-04] MEDS ORDERED: PRASUGREL 10 MG TAB PO SCH (09:00)
[2016-04-04] MEDS ORDERED: ASPIRIN EC 81 MG TABEC PO SCH (09:00)
--- NOTE | 2016-04-04 09:01 | HHI.FPPN ---
Subjective Remarks Pt seen and examined this morning. No acute events overnight. AFVSS. Pt feeling well this morning. Denies chest pain with activity or at rest. Some bleeding from catheterization access site in right groin overnight, this has resolved. Pt feels back to baseline and expresses the desire to go home. (Deny Palafox MD R2) Objective Vitals Vital Signs Date Time Temp Pulse Resp B/P Pulse Ox O2 Delivery O2 Flow Rate FiO2 04/04/16 08:00 77 04/04/16 07:00 65 04/04/16 07:00 98.7 86 20 130/85 95 04/04/16 05:00 74 04/04/16 04:00 97.9 72 16 141/92 96 04/04/16 04:00 64 04/04/16 03:00 71 04/04/16 02:00 70 04/04/16 01:00 62 04/04/16 00:00 75 04/04/16 00:00 98.1 74 16 120/80 96 04/04/16 00:00 98.1 74 16 120/80 96 04/03/16 23:00 71 04/03/16 22:00 72 04/03/16 21:00 73 04/03/16 20:15 78 04/03/16 20:10 98.0 75 16 130/76 96 04/03/16 18:04 72 17 135/78 97 04/03/16 16:00 92 18 110/67 96 Room Air 04/03/16 14:30 77 19 106/67 98 Room Air 04/03/16 13:30 83 20 106/67 97 Room Air 04/03/16 10:31 98.1 78 16 136/67 95 I/O 04/03/16 04/03/16 04/03/16 04/04/16 04/04/16 04/04/16 07:00 15:00 23:00 07:00 15:00 23:00 Intake Total 480 ml Output Total 1500 ml Balance -1020 ml Intake Oral 480 ml Output Urine Total 1500 ml (Deny Palafox MD R2) Result Diagram: 04/04/16 0610 04/04/16 0610 Objective Remarks GENERAL: This is a well-nourished, well-developed patient, in no apparent distress. CARDIOVASCULAR: Regular rate and rhythm without murmurs, gallops, or rubs. RESPIRATORY: Clear to auscultation. Breath sounds equal bilaterally. No wheezes , rales, or rhonchi. GASTROINTESTINAL: Abdomen soft, non-tender, nondistended. MUSCULOSKELETAL: Extremities without clubbing, cyanosis, or edema. NEUROLOGICAL: Awake and alert. Motor and sensory grossly within normal limits. Normal speech. (Deny Palafox MD R2) A/P Assessment and Plan Patient is a 70-year-old male with past medical history significant for CAD, hyperlipidemia presenting due to unstable angina. Cardiology has been consulted, appreciate recommendations. Patient is anticipated to have cardiac catheterization later today or tomorrow. Discharge Planning Anticipate discharge later today after echocardiogram has been completed. sdw Dr. Vazquez, Dr. Raza, Dr. Bobo, Dr. Galvan (Deny Palafox MD R2) Attending Attestation Pt. examined and case discussed with resident physicians I have read the above note and agree with the assessment/plan as discussed with me I was involved in all medical decision making for this patient Tomi Vazquez MD (Tomi Vazquez MD) Problem List: (1) Unstable angina Status: Acute Plan: Resolved Patient currently denies chest pain at rest or while walking. On admission, EKG significant for PVC, T-wave inversion in lead 3, no ST changes. Patient's online marketing specialist is Dr. Garzon, recommended admission and cardiac catheterization. -Cardiology consulted, appreciate recommendations and intervention -Pt s/p left heart catheterization with placement of drug-eluting stent 1 -Continue antiplatelet agents: Aspirin, Effient -Continue medical management for coronary artery disease, see below -Complete 2-D echocardiogram -Follow-up with cardiology in 1 week after discharge, Dr. Garzon -Troponin less then 0.02-->less than 0.02--> 0.16 -CK-MB 3.6-->2.5-->3.0 -CK 151-->135-->121 -Morphine, nitroglycerin, nitroglycerin paste prn chest pain -Aspirin 324 mg 1 -See plans below for hyperlipidemia, diabetes, CAD -Labetalol, hydralazine prn (2) ACS (acute coronary syndrome) Status: Acute Plan: -See plan above (3) CAD (coronary artery disease) Status: Acute Plan: Patient with history of coronary artery disease and the placement of 3 stents, per pt. Continue home medications: -Aspirin 81 mg (Antiplatelet) -Lisinopril 2.5 mg po daily (RODY) -Metoprolol tartrate 25 mg po daily (Beta tere) -Effient 10 mg po daily (Antiplatelet) -Pravastatin [address] of simvastatin which is not on hospital formulary ( Statin) -Nitrates to be resumed upon discharge (4) Diabetes Status: Acute Plan: Patient with history of diabetes type 2 diabetes. -Hold home metformin -Low dose SSI -Monitor blood glucose levels -We'll check hemoglobin A1c, pending (5) COPD (chronic obstructive pulmonary disease) Status: Acute Plan: Continue home medications -Advair not available hospital formulary will replace with Symbicort -Continue montelukast 10 mg po HS (6) Hyperlipidemia Status: Acute Plan: -Atorvastatin 10 mg HS (7) FEN/PPX Status: Acute Plan: Fluids: None, pt able to tolerate PO Electrolytes: Within normal limits, continue to monitor Nutrition: Diabetic Diet DVT PPX: Heparin 5,000 Q8hrs (Deny Palafox MD R2) Deny Palafox MD R2 Apr 04, 2016 09:01 Tomi Vazquez MD Apr 04, 2016 18:47
--- NOTE | 2016-04-04 09:33 | PD.CARD.PN ---
Subjective Subjective Remarks no complaints chest pain free ambulating without difficulty Objective Medications Current Medications Medications (Trade) Dose Ordered Sig/Mitzi Route Start Time Stop Time Status Last Admin (NS Flush) 2 ml BID IVF 04/03/16 21:00 04/04/16 08:56 (NS Flush) 2 ml UNSCH PRN IVF 04/03/16 14:45 (Nitroglycerin 2% Oint) 2 inch Q1HR PRN TOP 04/03/16 14:45 (Nitrostat Sl) 0.4 mg Q5M PRN SL 04/03/16 14:45 (Morphine Inj) 2 mg Q30M PRN IV 04/03/16 14:45 (Ecotrin Ec) 162 mg DAILY PO 04/04/16 09:00 04/04/16 08:56 (Lopressor) 12.5 mg HS PO 04/04/16 21:00 (Singulair) 10 mg HS PO 04/04/16 21:00 (Symbicort 160-4.5 Inh) 1 puff BID INH 04/03/16 21:00 (Pravachol) 40 mg HS PO 04/03/16 21:00 04/03/16 21:17 (Pill Splitter) 1 ea UNSCH PRN OTHER 04/03/16 21:00 (D50w (Vial) Inj) 25 ml UNSCH PRN IV PUSH 04/03/16 16:15 (Glucagon Inj) 1 mg UNSCH PRN OTHER 04/03/16 16:15 (Zofran Inj) 4 mg Q6H PRN IV 04/03/16 16:15 (Demetria-Colace) 1 tab BID PRN PO 04/03/16 16:15 (Apresoline Inj) 10 mg Q6H PRN IV 04/03/16 16:15 (Trandate Inj) 10 mg Q4H PRN IV 04/03/16 16:15 (Prinivil) 2.5 mg DAILY PO 04/04/16 09:00 04/04/16 08:55 Heparin Sodium (Porcine) 5000 units 5,000 units Q8HR SQ 04/03/16 22:00 (NS 1000 ml Inj) 1,000 ml @ 100 mls/hr Q10H IV 04/03/16 17:00 (Effient) 10 mg DAILY PO 04/04/16 09:00 04/04/16 08:55 Vital Signs / I&O Vital Signs Date Time Temp Pulse Resp B/P Pulse Ox O2 Delivery O2 Flow Rate FiO2 04/04/16 09:00 72 04/04/16 08:00 77 04/04/16 07:00 65 04/04/16 07:00 98.7 86 20 130/85 95 04/04/16 05:00 74 04/04/16 04:00 97.9 72 16 141/92 96 04/04/16 04:00 64 04/04/16 03:00 71 04/04/16 02:00 70 04/04/16 01:00 62 04/04/16 00:00 75 04/04/16 00:00 98.1 74 16 120/80 96 04/04/16 00:00 98.1 74 16 120/80 96 04/03/16 23:00 71 04/03/16 22:00 72 04/03/16 21:00 73 04/03/16 20:15 78 04/03/16 20:10 98.0 75 16 130/76 96 04/03/16 18:04 72 17 135/78 97 04/03/16 16:00 92 18 110/67 96 Room Air 04/03/16 14:30 77 19 106/67 98 Room Air 04/03/16 13:30 83 20 106/67 97 Room Air 04/03/16 10:31 98.1 78 16 136/67 95 I/O 04/03/16 04/03/16 04/03/16 04/04/16 04/04/16 04/04/16 07:00 15:00 23:00 07:00 15:00 23:00 Intake Total 480 ml Output Total 1500 ml Balance -1020 ml Intake Oral 480 ml Output Urine Total 1500 ml Physical Exam GENERAL: Well-nourished, well-developed patient. SKIN: Warm and dry. HEAD: Normocephalic. EYES: No scleral icterus. No injection or drainage. NECK: Supple, trachea midline. No JVD or lymphadenopathy. CARDIOVASCULAR: Regular rate and rhythm without murmurs, gallops, or rubs. RESPIRATORY: Breath sounds equal bilaterally. No accessory muscle use. GASTROINTESTINAL: Abdomen soft, non-tender, nondistended. EXTREMITIES: No cyanosis, or edema. NEUROLOGICAL: Awake, alert, and oriented x 3. Non-focal. Laboratory Laboratory Tests Test 04/03/16 04/03/16 04/04/16 10:45 16:45 06:10 White Blood Count 6.3 TH/MM3 6.1 TH/MM3 Red Blood Count 4.93 MIL/MM3 4.65 MIL/MM3 Hemoglobin 14.6 GM/DL 14.1 GM/DL Hematocrit 42.8 % 40.3 % Mean Corpuscular Volume 86.8 FL 86.8 FL Mean Corpuscular Hemoglobin 29.7 PG 30.3 PG Mean Corpuscular Hemoglobin 34.2 % 34.9 % Concent Red Cell Distribution Width 13.5 % 13.3 % Platelet Count 209 TH/MM3 161 TH/MM3 Mean Platelet Volume 8.1 FL 8.1 FL Neutrophils (%) (Auto) 60.1 % 70.3 % Lymphocytes (%) (Auto) 28.3 % 19.9 % Monocytes (%) (Auto) 8.5 % 8.3 % Eosinophils (%) (Auto) 2.3 % 1.1 % Basophils (%) (Auto) 0.8 % 0.4 % Neutrophils # (Auto) 3.8 TH/MM3 4.3 TH/MM3 Lymphocytes # (Auto) 1.8 TH/MM3 1.2 TH/MM3 Monocytes # (Auto) 0.5 TH/MM3 0.5 TH/MM3 Eosinophils # (Auto) 0.1 TH/MM3 0.1 TH/MM3 Basophils # (Auto) 0.1 TH/MM3 0.0 TH/MM3 CBC Comment DIFF FINAL DIFF FINAL Differential Comment Prothrombin Time 11.1 SEC Prothromb Time International 1.0 RATIO Ratio Activated Partial 28.2 SEC Thromboplast Time Sodium Level 140 MEQ/L 141 MEQ/L Potassium Level 4.2 MEQ/L 3.9 MEQ/L Chloride Level 104 MEQ/L 105 MEQ/L Carbon Dioxide Level 25.6 MEQ/L 29.5 MEQ/L Anion Gap 10 MEQ/L 7 MEQ/L Blood Urea Nitrogen 17 MG/DL 15 MG/DL Creatinine 1.17 MG/DL 1.22 MG/DL Estimat Glomerular Filtration 62 ML/MIN 59 ML/MIN Rate Random Glucose 114 MG/DL 121 MG/DL Calcium Level 9.3 MG/DL 8.8 MG/DL Total Bilirubin 0.9 MG/DL Direct Bilirubin 0.2 MG/DL Indirect Bilirubin 0.7 MG/DL Aspartate Amino Transf 12 U/L (AST/SGOT) Alanine Aminotransferase 28 U/L (ALT/SGPT) Alkaline Phosphatase 80 U/L Total Creatine Kinase 151 U/L 135 U/L 121 U/L Creatine Kinase MB 3.6 NG/ML 2.5 NG/ML 3.0 NG/ML Troponin I LESS THAN 0.02 LESS THAN 0.02 0.16 NG/ML NG/ML NG/ML Total Protein 7.7 GM/DL Albumin 4.5 GM/DL Triglycerides Level 133 MG/DL Cholesterol Level 120 MG/DL LDL Cholesterol 50 MG/DL HDL Cholesterol 43.9 MG/DL Cholesterol/HDL Ratio 2.73 RATIO Thyroid Stimulating Hormone 1.760 uIU/ML 3rd Gen Imaging Last Impressions Chest X-Ray 04/03/16 0000 Signed Impressions: Service Date/Time: Sunday, April 03, 2016 11:44 - CONCLUSION: Underated , otherwise negative. Denny Guaman MD FACR Assessment and Plan Problem List: (1) Unstable angina Assessment and Plan: S/P PCI (BARRERA) to D1 Hemodynamically stable Chest pain free Cont DAPT with ASA and Effient Aggressive medical management for CAD Encourage out of bed and incentive spirometry Stable from cardiovascular standpoint to be discharge home today (2) Diabetes (3) COPD (chronic obstructive pulmonary disease) (4) Hyperlipidemia (5) CAD (coronary artery disease) Sampson Arevalo MD Apr 04, 2016 09:33
--- NOTE | 2016-04-04 10:20 | HHI.DCPOC ---
Discharge Care Plan Diagnosis: (1) Unstable angina (2) COPD (chronic obstructive pulmonary disease) (3) Hyperlipidemia (4) ACS (acute coronary syndrome) (5) CAD (coronary artery disease) (6) Diabetes Goals to Promote Your Health * To prevent worsening of your condition and complications * To maintain your health at the optimal level Directions to Meet Your Goals Take your medications as prescribed Follow your dietary instruction Follow activity as directed Keep your appointments as scheduled Take your immunizations and boosters as scheduled If your symptoms worsen call your PCP, if no PCP go to Urgent Care Center or Emergency Room Smoking is Dangerous to Your Health. Avoid second hand smoke Call the 24-hour hour crisis hotline for domestic abuse at Deny Palafox MD R2 Apr 04, 2016 10:20
--- NOTE | 2016-04-04 16:34 | EC ---
Study Study Date:04/04/2016 STUDY CONCLUSIONS SUMMARY LEFT VENTRICLE: The cavity size was normal. Systolic function was normal. The estimated ejection fraction was in the range of 55% to 60%. Wall motion was normal; there were no regional wall motion abnormalities. Doppler parameters are consistent with abnormal left ventricular relaxation (grade 1 diastolic dysfunction). If LV function is below 40, please consider prescribing an ACEI or ARB or document rationale for non-use. PROCEDURE DATA STUDY STATUS: Elective. Procedure: Transthoracic echocardiography. Image quality was good. Scanning was performed from the parasternal, apical, and subcostal acoustic windows. Study completion: The patient tolerated the procedure well. Transthoracic echocardiography. M-mode, complete 2D, complete spectral Doppler, and color Doppler. Patient status: Inpatient. CARDIAC ANATOMY LEFT VENTRICLE: The cavity size was normal. Systolic function was normal. The estimated ejection fraction was in the range of 55% to 60%. Wall motion was normal; there were no regional wall motion abnormalities. Doppler parameters are consistent with abnormal left ventricular relaxation (grade 1 diastolic dysfunction). AORTIC VALVE: The valve appears to be grossly normal. Doppler: There was no stenosis. No significant regurgitation. MITRAL VALVE: The valve appears to be grossly normal. Doppler: There was no evidence for stenosis. Trace regurgitation. RIGHT VENTRICLE: The cavity size was normal. Systolic function was normal. PULMONIC VALVE: Not well visualized. Doppler: There was no evidence for stenosis. No significant regurgitation. TRICUSPID VALVE: The valve appears to be grossly normal. Doppler: There was no evidence for stenosis. Trace regurgitation. PERICARDIUM: There was no pericardial effusion. BASIC MEASUREMENTS ADULT NORMAL Left ventricle LV internal dimension, ED, chordal level, 49.3 mm 43-52 PLAX LV internal dimension, ES, chordal level, 36.1 mm 23-38 PLAX Fractional shortening, chordal level, PLAX *27 % >29 LV posterior wall thickness, ED 8.33 mm IVS/LVPW ratio, ED 1.16 <1.3 Ventricular septum Septal thickness, ED 9.63 mm Aortic valve Leaflet separation 21 mm 15-26 Left atrium Anterior-posterior dimension 33 mm Right ventricle RV internal dimension, ED, PLAX 26.1 mm 19-38 BASIC MEASUREMENTS ADULT NORMAL Aortic valve Leaflet separation 21 mm 15-26 Aorta Root diameter, ED 36 mm 20-37 DOPPLER MEASUREMENTS ADULT NORMAL Mitral valve Peak E-wave velocity 57.3 cm/s Peak A-wave velocity 69.6 cm/s Peak E/A ratio 0.8 Tricuspid valve Regurgitant peak velocity 252 cm/s Peak RV-RA gradient, S 25 mm Hg Maximal regurgitant velocity 252 cm/s LEGEND: Mean values are shown as u=mean value. Asterisk (*) bauer values outside specified normal range. Prepared and signed by Vinod Martin [id number]
[2016-04-04] MEDS ORDERED: MONTELUKAST SODIUM 10 MG TAB PO SCH (21:00)
[2016-04-04] MEDS ORDERED: METOPROLOL TARTRATE 25 MG TAB PO SCH (21:00)
[2016-04-04] MEDS ORDERED: ATORVASTATIN 10 MG TAB PO SCH (21:00)
[2016-04-04 22:07] LABS: HEMOGLOBIN Ao 83.9 %; HEMOGLOBIN F 1.1 %; HEMOGLOBIN LA1C 1.9 %; HEMOGLOBIN P3 3.9 %
--- NOTE | 2016-04-05 07:03 | EKG ---
Date Performed: 04/03/2016 Time Performed: 16:42:43 PTAGE: 70 years EKG: Sinus rhythm BORDERLINE LEFT AXIS DEVIATION MINIMAL VOLTAGE CRITERIA FOR LVH, CONSIDER NORMAL VARIANT BORDERLINE ECG PREVIOUS TRACING : 04/03/2016 10.38 Compared to prior tracing no significant change DOCTOR: Tim Garzon Interpretating Date/Time 04/05/2016 07:01:16
--- NOTE | 2016-04-05 07:13 | EKG ---
Date Performed: 04/03/2016 Time Performed: 10:38:42 PTAGE: 70 years EKG: Sinus rhythm WITH OCCASIONAL VENTRICULAR PREMATURE COMPLEXES MARKED LEFT AXIS DEVIATION MINIMAL VOLTAGE CRITERIA FOR LVH, CONSIDER NORMAL VARIANT ABNORMAL ECG PREVIOUS TRACING : 06/28/2012 06.05 Compared to prior tracing no significant change DOCTOR: Tim Garzon Interpretating Date/Time 04/05/2016 07:09:41
== END 2016-04-04 14:19 | disposition home or self-care (01) | DRG 247 ==
LOC: NEPE 10:26 → NEDA 12:53 → HCIS 20:11
PROVIDERS: ADMIT Family Medicine; ATTEND Family Medicine
PROC: 4A023N7 Measurement of Cardiac Sampling and Pressure, Left Heart, Percutaneous Approach (ICD-10-PCS; 2016-04-03)
PROC: B2111ZZ Fluoroscopy of Multiple Coronary Arteries using Low Osmolar Contrast (ICD-10-PCS; 2016-04-03)
PROC: B2151ZZ Fluoroscopy of Left Heart using Low Osmolar Contrast (ICD-10-PCS; 2016-04-03)
PROC: 3E073GC Introduction of Other Therapeutic Substance into Coronary Artery, Percutaneous Approach (ICD-10-PCS; 2016-04-03)
PROC: B41F1ZZ Fluoroscopy of Right Lower Extremity Arteries using Low Osmolar Contrast (ICD-10-PCS; 2016-04-03)
PROC: 027035Z Dilation of Coronary Artery, One Artery with Two Drug-eluting Intraluminal Devices, Percutaneous Approach (ICD-10-PCS; principal; 2016-04-03 17:30)
DX: I25.110 Atherosclerotic heart disease of native coronary artery with unstable angina pectoris (principal); J44.9 Chronic obstructive pulmonary disease, unspecified; E78.5 Hyperlipidemia, unspecified; E11.9 Type 2 diabetes mellitus without complications; Z79.84 Long term (current) use of oral hypoglycemic drugs; F17.210 Nicotine dependence, cigarettes, uncomplicated; E66.9 Obesity, unspecified
CPT/HCPCS: 71020; 80048; 80061; 80076; 82550; 82552; 82948; 83036; 84443; 84484; 85002; 85025; 85610; 85730; 92928; 93005; 93306; 93454; 93458; C1725; C1760; C1769; C1874; C1887; C1893; G0269; J1644; J1815; J2250; J3010; Q9967